=== PATIENT | male | born 1990 | race Caucasian/White ===

== ENCOUNTER 2021-06-28 05:51 | Emergency (ER) | payer MEDICAID ==
[~2021-06-28] VITALS: Ht 188 cm; Wt 82.0 kg
[2021-06-28 06:35] VITALS: BP 131/61
[2021-06-28] MEDS ORDERED: CHLO25CA10 PO (06:51)
[2021-06-28] MEDS ORDERED: LORAZEPAM 1MG TABLET PO ONE (07:00)
== END 2021-06-28 07:15 | disposition home or self-care (01) ==
LOC: ER 05:51
DX: F10.239 Alcohol dependence with withdrawal, unspecified (principal); Y90.9 Presence of alcohol in blood, level not specified; Z88.8 Allergy status to other drugs, medicaments and biological substances
CPT/HCPCS: 99283